=== PATIENT | male | born 1945 | race Caucasian/White ===

== ENCOUNTER 2016-11-20 15:50 | Emergency (ER) | payer MEDICARE, OTHER ==
[~2016-11-20 15:50] MED LIST: ASA5GR PO; HEMOCYTET PO; LOTENSIN HCT1 TA2 PO; MULTIPLE VIT PO; PERCOCET1 TA2 PO; Z300 PO
[2017-05-01] MEDS ORDERED: JANTOVEN1 MG (13:58)
[2017-05-01] MEDS ORDERED: LOP50 PO (13:58)
== END 2016-11-20 16:31 | disposition home or self-care (01) ==
LOC: ER 15:50
PROC: 2W39X1Z Immobilization of Left Upper Extremity using Splint (ICD-10-PCS; principal; 2016-11-20)
DX: S52.502A Unspecified fracture of the lower end of left radius, initial encounter for closed fracture (principal); S52.602A Unspecified fracture of lower end of left ulna, initial encounter for closed fracture; I48.91 Unspecified atrial fibrillation; Z79.82 Long term (current) use of aspirin; W19.XXXA Unspecified fall, initial encounter
CPT/HCPCS: 73080-LT; 73110-LT; 99283